=== PATIENT | male | born 1965 | race Two or more races ===

== ENCOUNTER 2024-10-17 19:37 | Emergency (ER) | payer MEDICAID, SELFPAY ==
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
[2024-10-17 19:43] VITALS: PULSE 86; RESP 18; O2SAT 97
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
[2024-10-17 19:44] VITALS: BP 156/88; PULSE 88; RESP 17; TEMP 36.7; O2SAT 96
[2024-10-17 19:45] VITALS: BMI 21.9
[2024-10-17] MEDS: SODIUM CHLORIDE 0.9% 1000 ML 1,000 ML 999 ML IV (19:55)
[2024-10-17 20:02] LABS: Basophils % (Auto) 0 % (0-2.5); Eosinophils # (Auto) 0.3 Thou/mm3 (0.0-0.5); Eosinophils % (Auto) 3 % (0-10); Hematocrit 36.9 % (41.0-53.0); Hemoglobin 13.2 g/dL (13.5-16.0); Immature Granulocytes % (Auto) 0 % (0-0); Immature Granulocytes Auto 0.03 Thou/mm3 (0.00-0.00); Lymphocytes # (Auto) 1.7 Thou/mm3 (1.0-4.8); Lymphocytes % (Auto) 19 % (10-50); Mean Corpuscular HGB Conc 35.8 g/dl (31.0-37.0); Mean Corpuscular Hemoglobin 32.3 pg (25.0-35.0); Mean Corpuscular Volume 90 fL (80-100); Monocytes # (Auto) 0.7 Thou/mm3 (0.0-0.8); Monocytes % (Auto) 7 % (0-12); Neutrophils # (Auto) 6.3 Thou/mm3 (1.8-7.7); Neutrophils % (Auto) 70 % (37-80); Nucleated Red Blood Cell % 0 /100 WBC (0); Platelet Count 190 Thou/mm3 (140-440); RDW Standard Deviation 36.2 fL (35.1-43.9); Red Blood Count 4.09 Miln/mm3 (4.50-5.90)
[2024-10-17 20:21] VITALS: BP 183/95; PULSE 84; RESP 18; O2SAT 99
[2024-10-17 20:22] LABS: Partial Thromboplastin Time 26.4 Seconds (22.0-36.0); Prothrombin Time 10.5 Seconds (9.0-12.2)
[2024-10-17 20:23] LABS: B-Type Natriuretic Peptide 64 pg/mL (0-100)
--- NOTE | 2024-10-17 20:23 | PC.NURSE ---
Pt c/o left chest wall pain, and high BP, Gordon MEDICAL TECHNICAL WRITER informed. No new order received.
--- NOTE | 2024-10-17 20:27 | PC.NURSE ---
Lt chest wall tender to touch, no crepitus to palp noted. Resp easy and even. Bilat lungs sound CYTA.
[2024-10-17 20:37] LABS: Collection Type, Urine Clean Catch; RBC,Urine 0 /hpf (0-3); Squamous Epithelial Cell,Urine 0 /hpf (0-5); WBC,Urine 0 /hpf (0-5)
[2024-10-17 20:38] LABS: Alanine Aminotransferase 24 U/L (10-49); Albumin, Serum 4.4 gm/dL (3.4-4.8); Albumin/Globulin Ratio 1.6 (1.2-2.2); Alkaline Phosphatase 140 U/L (46-116); Anion Gap 11 (7-16); Aspartate Amino Transferase 20 U/L (0-34); BUN/Creatinine Ratio 13 Ratio (12-20); Bilirubin,Total 0.4 mg/dL (0.3-1.2); Blood Urea Nitrogen 17 mg/dL (9-23); Calcium 9.4 mg/dL (8.3-10.6); Calcium (Corrected) 9.4 mg/dL (8.5-10.1); Carbon Dioxide 24.2 mMol/L (20.0-31.0); Chloride 97 mMol/L (98-107); Creatinine (Component) 1.3 mg/dL (0.6-1.3); Estimated Creatinine Clearance 45.9 mL/min (>60); Globulin 2.8 gm/dL (2.3-3.5); Magnesium 1.7 mg/dL (1.6-2.6); Osmolality,Calculated 292 (275-295); Potassium 4.5 mMol/L (3.4-5.1); Sodium 132 mMol/L (136-145); Total Protein 7.2 gm/dL (5.7-8.2); Troponin I < 0.020 ng/mL (0.0-0.045); eGFR > 60 See Note
[2024-10-17 20:59] LABS: Glucose 573 mg/dL (74-106)
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
[2024-10-17] MEDS: INSULIN HUM REGULAR 1 UNIT/0.01 ML (PER UNIT) 5 UNIT SC (22:00)
[2024-10-17 22:02] LABS: Bilirubin,Urine Negative (Negative); Blood,Urine Negative (Negative); Clarity,Urine Clear (Clear/Hazy); Color,Urine Colorless (Lt Yel-Yel); Glucose, Urine 4+ (Negative); Ketones,Urine Negative (Negative); Leukocyte Esterase,Urine Negative (Negative); Nitrite,Urine Negative (Negative); PH,Urine 6.5 (5.0-7.0); Protein,Urine Negative (Neg - Trace); Specific Gravity,Urine 1.029 (1.001-1.035); Urobilinogen,Urine Negative mg/dL (0.0-1.0)
[2024-10-17 22:11] LABS: LDH (Lactate Dehydrogenase) 221 U/L (120-246)
[2024-10-17 22:38] LABS: Amphetamine/Methamp Scrn,U Negative (Negative); Barbiturate Screen,Urine Negative (Negative); Benzodiazepines Screen,Urine Negative (Negative); Benzoylecgonine Screen, Ur Negative (Negative); Fentanyl Screen,Urine Negative (Negative); Opiate Screen,Urine Negative (Negative); THC Screen,Urine Negative (Negative)
[2024-10-18 00:26] VITALS: BP 137/65; PULSE 67; RESP 16; TEMP 36.8; O2SAT 99
[2024-10-18] MEDS: KETOROLAC INJ 30 MG/ML VIAL IVP (01:00)
[2024-10-18] MEDS: MORPHINE SULF INJ 10 MG/ML VIAL 5 MG IVP (01:03)
--- NOTE | 2024-10-18 02:10 | PRELIM_ITS ---
CT scan of the chest without intravenous contrast (axial sections with sagittal and coronal reformats) October 18, 2024 0004 hours Clinical History: Rt mass No prior study is available for comparison. Findings: There is a right upper hilar mass extending to the pleura, measuring 4 x 3.6 cm seen splaying and partially occluding the right upper lobe segmental bronchi with associated segmental atelectasis, traction and cicatrisation of adjacent parenchyma. There are soft tissue nodules in the right upper lobe and lower lobe,the largest measuring 5mm in the right lower lobe (axial image 73/147).There is mild bronchial wall thickening bilaterally. Bibasilar dependent atelectasis is present. No evidence of pleural effusion or pneumothorax. The mediastinum demonstrates no evidence of mass.There few enlarged mediastinal lymph nodes seen largest measuring 1.8 x 0.8 cm in the subcarinal region. The thoracic aorta is unremarkable. There is no pericardial effusion. Coronary artery calcification is noted. Mild degenerative changes are identified in the spine. The visualized upper abdominal viscera are unremarkable on this noncontrast study. Impression: Right upper hilar mass splaying, extending to the pleura, partially occluding the right upper lobe segmental bronchi with satellite nodules as described of concern for neoplasm, infective/inflammatory etiologies cannot be excluded. Recommend clinical correlation and follow-up. Report Electronically Signed By: Edward Mauricio 10/18/2024 2:10:21 AM [EST]
--- NOTE | 2024-10-18 02:31 | PC.NURSE ---
Dr. Santos spoke to pt with regards to results and plan of care, translated by Mesha MORELOS
[2024-10-18 02:36] VITALS: BP 122/76; PULSE 62; RESP 18; TEMP 36.4; O2SAT 98
== END 2024-10-18 03:01 | disposition home or self-care (01) ==
PROVIDERS: Registered Nurse General Practice; Emergency Provider Emergency Medicine; PCP Family Medicine
DX: S20.219A Contusion of unspecified front wall of thorax, initial encounter (principal); R91.8 Other nonspecific abnormal finding of lung field; E11.65 Type 2 diabetes mellitus with hyperglycemia; Y08.89XA Assault by other specified means, initial encounter; Y92.512 Supermarket, store or market as the place of occurrence of the external cause; Z79.84 Long term (current) use of oral hypoglycemic drugs
CPT/HCPCS: 36415; 71101; 71250; 80053; 80307; 81001; 82803; 83615; 83735; 83880; 84484; 85025; 85610; 85730; 96360; 96372; 99284; J1815; J1885; J2270; J7030